=== PATIENT | female | born 1970 | race Caucasian/White ===

== ENCOUNTER 2017-06-18 01:36 | Emergency (ER) | payer OTHER ==
[~2017-06-18] VITALS: Ht 170.2 cm; Wt 102.1 kg
[2017-06-18] MEDS ORDERED: XELJANZ XR11 MG (01:46)
[2017-06-18] MEDS ORDERED: METHOTREXATE 22.5 MG (01:47)
[2017-06-18] MEDS ORDERED: ESTRADIOL 1 MG T1 M1 (01:47)
[2017-06-18] MEDS ORDERED: ACETAMINOPHEN-1 EAC1 PO (03:37)
== END 2017-06-18 03:41 | disposition home or self-care (01) ==
LOC: M.ERS 01:36
DX: S63.592A Other specified sprain of left wrist, initial encounter (principal); M06.9 Rheumatoid arthritis, unspecified; F17.210 Nicotine dependence, cigarettes, uncomplicated; W01.0XXA Fall on same level from slipping, tripping and stumbling without subsequent striking against object, initial encounter; Y93.89 Activity, other specified; Y92.89 Other specified places as the place of occurrence of the external cause; Y99.8 Other external cause status